=== PATIENT | male | born 1980 | race Caucasian/White ===

== ENCOUNTER 2023-04-16 09:45 | Outpatient (OUT) | payer OTHER, SELFPAY ==
[2023-04-16 10:45] LABS: Alanine Aminotransferase 67 U/L (16-63); Anion Gap 10.5; Aspartate Amino Transferase 31 U/L (15-37); BUN Creatinine Ratio 15.2; Calcium 9.5 mg/dL (8.5-10.1); Carbon Dioxide 30.1 mmol/L (21.0-32.0); Chloride 103 mmol/L (98-107); Chol HDL Ratio 3.1; Cholesterol 127 mg/dL (<=200); Estimated GFR (African America >60 (>=60); Estimated GFR (Non-African Ame >60 (>=60); Glucose 105 mg/dL (74-106); HDL Cholesterol 41 mg/dL (40-60); Potassium 4.6 mmol/L (3.5-5.1); Sodium 139 mmol/L (136-145); Triglycerides 95 mg/dL (<=150)
== END 2023-04-16 09:46 | disposition home or self-care (01) ==
LOC: LAB 09:48
PROVIDERS: PCP Internal Medicine; Visit Provider Internal Medicine Cardiovascular Disease
DX: I25.10 Atherosclerotic heart disease of native coronary artery without angina pectoris (principal); E78.5 Hyperlipidemia, unspecified
CPT/HCPCS: 36415; 80048; 80061; 84450; 84460

== ENCOUNTER 2023-05-06 11:58 | Emergency (ER) | payer OTHER, SELFPAY ==
[2023-05-06 12:04] VITALS: BP 143/82; PULSE 66; RESP 16; TEMP 36.6; O2SAT 95; BMI 37.4
--- NOTE | 2023-05-06 12:16 | XR_ITS ---
The [address] [address] Patient Name: ISABEL NELSON MRN: [id number] date: 1980 Sex: M Assigned Patient Location: ER Current Patient Location: ER Accession/Order Number: [id number] Exam Date: 05/06/2023 12:33 Report Date: 05/06/2023 12:49 At the request of: DANIKA HORTA Procedure: XR chest 1V EXAMINATION: XR chest 1V HISTORY: cp COMPARISON: No relevant comparison available. TECHNIQUE: AP portable FINDINGS: LUNGS: No significant pulmonary parenchymal abnormalities. Low lung volumes VASCULATURE: No increased pulmonary vasculature. PLEURA: No pneumothorax, effusion, or pleural thickening. CARDIAC: No cardiomegaly or cardiac silhouette abnormality. MEDIASTINUM: No visible mass or adenopathy. BONES: No fracture or visible bone lesion. OTHER: Negative. XR/XR chest 1V IMPRESSION: No acute cardiopulmonary process Electronically authenticated by: ADELSO CADENA Date: 05/06/2023 12:49
--- NOTE | 2023-05-06 12:16 | ECG_ITS ---
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
--- NOTE | 2023-05-06 12:33 | ED.GENADUL1 ---
HPI - General Adult General Chief complaint: Weakness Stated complaint: GENERAL WEAKNESS Time Seen by Provider: 05/06/23 12:11 Source: patient Mode of arrival: walk-in History of Present Illness HPI narrative: The patient is coming to the ER after he was walking for almost a mile and he started having chest pressure and generalized weakness is denying any pain at the moment of any chest pressure but he mentioned that he have a history of panic attack and he is worried about his heart He denies any difficulty breathing he denies any fever chills or cough No other complaints and he does not take any medication Related Data Allergies Allergy/AdvReac Type Severity Reaction Status Date / Time No Known Drug Allergies Allergy Verified 05/06/23 12:03 Review of Systems ROS Status of ROS 10 or more systems reviewed and unremarkable except as noted in history and below Exam Narrative Exam Narrative: Nurses notes and vital signs reviewed and patient is not hypoxic. General: Well-appearing and in no apparent distress. Skin: Warm, dry, no pallor noted. No rash. Head: Normocephalic, atraumatic. Neck: Supple, non-tender. Eye: Pupils are equal, round and EOMI. No scleral icterus. Ears, Nose, Mouth, and Throat: TM are clear, no nasal mucosal hypertrophy. Oral mucosa is moist, no posterior oropharynx erythema, uvula is mid-line Cardiovascular: Regular Rate and Rhythm without murmur, gallop or rub. Respiratory: No accessory muscle use or respiratory distress. Lungs are clear to auscultation, no wheezing, rales or rhonchi Chest Wall: no tenderness Back: No midline thoracic or lumbar vertebral tenderness. No CVA tenderness Musculoskeletal: normal ROM, no calf or popliteal tenderness, no lower extremity edema/swelling GI: Abdomen is soft, non-distended. Normal bowel sounds. No masses appreciated. No tenderness to palpation. No rebound, guarding, or rigidity noted. Neurological: A&O x4. No cranial nerve dysfunction observed. No truncal ataxia. Moves all extremities. Sensation intact. Psychiatric: Cooperative and interactive. Normal mood and affect. Constitutional Vital Signs, click to edit/add: Last Vital Signs Temp 98 F 05/06/23 12:04 Pulse 66 05/06/23 12:04 Resp 16 05/06/23 12:04 BP 143/82 H 05/06/23 12:04 Pulse Ox 95 05/06/23 12:04 O2 Del Method Room Air 05/06/23 12:04 Course Vital Signs Vital signs: Vital Signs Temperature 98 F 05/06/23 12:04 Pulse Rate 66 05/06/23 12:04 Respiratory Rate 16 05/06/23 12:04 Blood Pressure 143/82 H 05/06/23 12:04 Pulse Oximetry 95 05/06/23 12:04 Oxygen Delivery Method Room Air 05/06/23 12:04 Temperature 98 F 05/06/23 12:04 Pulse Rate 66 05/06/23 12:04 Respiratory Rate 16 05/06/23 12:04 Blood Pressure 143/82 H 05/06/23 12:04 Pulse Oximetry 95 05/06/23 12:04 Oxygen Delivery Method Room Air 05/06/23 12:04 Medical Decision Making MDM Narrative Medical decision making narrative: The patient EKG showing sinus rhythm with a heart rate of [address] elevation or depression Chest x-ray and CBC and chemistry showed no acute pathology in addition to a troponin repeated twice The patient right now was discharged home as his symptoms could be secondary to none cardiac reasons and he was instructed that he needs to follow-up with his primary care doctor for further evaluation and possible stress test needed in case of recurring symptoms The patient is to follow up with primary care physician in next 2-3 days or to return to the emergency department should any of the signs or symptoms worsen or new symptoms develop. The patient agrees with the following Diagnosis and Treatment plan and the patient will be discharged home. Lab Data Labs: Lab Results 05/06/23 05/06/23 Range/Units 12:31 13:43 WBC 5.9 (4.0-11.0) 10^3/uL RBC 4.61 L (4.70-6.10) 10^6/uL Hgb 13.9 L (14.0-18.0) g/dL Hct 40.2 L (42.0-54.0) % MCV 87.2 (80.0-94.0) fL MCH 30.2 (25.9-34.0) pg MCHC 34.6 (29.9-35.2) g/dL RDW 12.7 (11.0-15.0) % Plt Count 216 (150-450) 10^3/uL MPV 9.9 (9.5-13.5) fL Neut % (Auto) 57.9 (43.0-75.0) % Lymph % (Auto) 31.8 (20.5-60.0) % [place] % (Auto) 6.4 (1.7-12.0) % Eos % (Auto) 3.2 (0.9-7.0) % Baso % (Auto) 0.5 (0.2-2.0) % Neut # (Auto) 3.4 (1.4-6.5) 10^3/uL Lymph # (Auto) 1.9 (1.2-3.8) 10^3/uL [place] # (Auto) 0.4 (0.3-0.8) 10^3/uL Eos # (Auto) 0.2 (0.0-0.7) 10^3/uL Baso # (Auto) 0.0 (0.0-0.1) 10^3/uL Abs Immat Gran (auto) 0.01 (0.00-0.03) 10^3/uL Imm/Tot Granulo (auto) 0.2 (0.0-0.5) % Sodium 139 (136-145) mmol/L Potassium 3.9 (3.5-5.1) mmol/L Chloride 104 (98-107) mmol/L Carbon Dioxide 26.1 (21.0-32.0) mmol/L Anion Gap 12.8 BUN 17.0 (7.0-18.0) mg/dL Creatinine 0.93 (0.70-1.30) mg/dL Est GFR ( Amer) >60 (>=60) Est GFR (Non-Af Amer) >60 (>=60) BUN/Creatinine Ratio 18.3 Glucose 124 H (74-106) mg/dL Calcium 8.9 (8.5-10.1) mg/dL Total Bilirubin 0.5 (0.2-1.0) mg/dL AST 31 (15-37) U/L ALT 67 H (16-63) U/L Alkaline Phosphatase 93 (46-116) U/L Troponin I High Sens 5.6 6.0 (4.0-76.1) pg/mL Total Protein 7.3 (6.4-8.2) g/dL Albumin 3.8 (3.4-5.0) g/dL Globulin 3.5 g/dL Albumin/Globulin Ratio 1.1 Discharge Plan Discharge Chief Complaint: Weakness Clinical Impression: Weakness Patient Disposition: Home, Self-Care Time of Disposition Decision: 14:29 Condition: Good Mode of Transportation: Private Vehicle Instructions: Weakness (ED) Stand Alone Forms: Portal Instructions Referrals: TREV PENN [Primary Care Provider] - 1 week Discharge Date/Time: 05/06/23 14:43
[2023-05-06 12:38] LABS: Basophils Percent Auto 0.5 % (0.2-2.0); Eosinophils Absolute Auto 0.2 10^3/uL (0.0-0.7); Eosinophils Percent Auto 3.2 % (0.9-7.0); Hematocrit 40.2 % (42.0-54.0); Hemoglobin 13.9 g/dL (14.0-18.0); Immature Granulocytes Abs Auto 0.01 10^3/uL (0.00-0.03); Immature Granulocytes Pct Auto 0.2 % (0.0-0.5); Lymphocytes Absolute Auto 1.9 10^3/uL (1.2-3.8); Lymphocytes Percent Auto 31.8 % (20.5-60.0); Mean Corpuscular HGB Conc 34.6 g/dL (29.9-35.2); Mean Corpuscular Hemoglobin 30.2 pg (25.9-34.0); Mean Corpuscular Volume 87.2 fL (80.0-94.0); Mean Platelet Volume 9.9 fL (9.5-13.5); Monocytes Absolute Auto 0.4 10^3/uL (0.3-0.8); Monocytes Percent Auto 6.4 % (1.7-12.0); Neutrophils Absolute Auto 3.4 10^3/uL (1.4-6.5); Neutrophils Percent Auto 57.9 % (43.0-75.0); Platelet Count 216 10^3/uL (150-450); Red Blood Count 4.61 10^6/uL (4.70-6.10); Red Cell Distribution Width 12.7 % (11.0-15.0); White Blood Count 5.9 10^3/uL (4.0-11.0)
[2023-05-06 13:04] LABS: Alanine Aminotransferase 67 U/L (16-63); Albumin Globulin Ratio 1.1; Albumin Level 3.8 g/dL (3.4-5.0); Alkaline Phosphatase 93 U/L (46-116); Anion Gap 12.8; Aspartate Amino Transferase 31 U/L (15-37); BUN Creatinine Ratio 18.3; Bilirubin Total 0.5 mg/dL (0.2-1.0); Calcium 8.9 mg/dL (8.5-10.1); Carbon Dioxide 26.1 mmol/L (21.0-32.0); Chloride 104 mmol/L (98-107); Estimated GFR (African America >60 (>=60); Estimated GFR (Non-African Ame >60 (>=60); Globulin 3.5 g/dL; Glucose 124 mg/dL (74-106); Potassium 3.9 mmol/L (3.5-5.1); Sodium 139 mmol/L (136-145); Total Protein 7.3 g/dL (6.4-8.2); Troponin I High Sensitivity 5.6 pg/mL (4.0-76.1)
== END 2023-05-06 14:43 | disposition home or self-care (01) ==
PROVIDERS: Emergency Provider Emergency Medicine; PCP Internal Medicine
DX: R53.1 Weakness (principal)
CPT/HCPCS: 36415; 71045; 80053; 84484; 85025; 93005; 99285